=== PATIENT | female | born 2000 | race African-American/Black ===

== ENCOUNTER 2022-09-07 10:07 | Inpatient (IN) | payer OTHER ==
[2022-09-07] MEDS ORDERED: CITRIC ACID/SODIUM CITRATE 30 ML UNIT-DOSE CUP PO ONE (10:45)
[2022-09-07] MEDS ORDERED: ELECTROLYTE-148 SOLN 1,000 ML IV SCH ×2 (10:45→15:45)
[2022-09-07] MEDS ORDERED: ELECTROLYTE-148 SOLN 1,000 ML IV ONE (10:45)
[2022-09-07 11:40] VITALS: BMI 47.4
[2022-09-07] MEDS ORDERED: morphine SULFATE/PF 1 MG/2 ML (2cc Syringe - QUVA) ONE (13:22)
[2022-09-07] MEDS ORDERED: FENTANYL CITRATE/PF 50 MCG/ML VIAL ONE (13:22)
[2022-09-07] MEDS ORDERED: ONDANSETRON 4 MG/2 ML VIAL ONE (14:15)
[2022-09-07] MEDS ORDERED: DEXAMETHASONE SOD PHOSPHATE 4 MG/1 ML VIAL ONE (14:15)
[2022-09-07] MEDS ORDERED: OXYTOCIN 10 UNITS/ML VIAL ONE (14:15)
[2022-09-07] MEDS ORDERED: OXYTOCIN 20 UNITS in 0.9% NS 20 UNIT/1,000 ML INFUS.BAG IV ONE (15:18)
[2022-09-07] MEDS ORDERED: SENNOSIDES/DOCUSATE COMBO (SENNA PLUS) TABLET (UD) PO PRN (15:30)
[2022-09-07] MEDS: OXYTOCIN 20 UNITS in 0.9% NS 20 UNIT/1,000 ML INFUS.BAG IV SCH (15:30)
[2022-09-07] MEDS ORDERED: IBUPROFEN 800 MG/8 ML IJ IVPB PRN (15:30)
[2022-09-07] MEDS ORDERED: METHYLERGONOVINE MALEATE 0.2 MG/1 ML AMP IM PRN (15:30)
[2022-09-07] MEDS ORDERED: ACETAMINOPHEN 325 MG TABLET (FP) PO PRN (15:30)
[2022-09-07] MEDS ORDERED: ELECTROLYTE-148 SOLN 500 ML IV ONE (15:36)
[2022-09-07] MEDS: FERROUS SO4 325 MG TABLET (FP) PO SCH (18:00)
[2022-09-08] MEDS: OXYTOCIN 20 UNITS in 0.9% NS 20 UNIT/1,000 ML INFUS.BAG IV SCH (00:10)
[2022-09-08] MEDS ORDERED: oxyCODONE HCL 5 MG TABLET PO PRN ×2 (03:30)
[2022-09-08 08:13] LABS: BASO % 0.2 % (0-2.0); HEMATOCRIT 27.9 % (32.4-45.2); HEMOGLOBIN 8.6 GM/dL (10.7-15.3); LYMPH % 13.3 % (8-40); MCH 23.3 pg (25.7-33.7); MCHC 30.9 g/dl (32.0-36.0); MEAN CELL VOLUME 75.2 fl (80-96); MEAN PLT VOLUME 8.2 fl (7.5-11.1); MONO % 6.6 % (3.8-10.2); NEUT % 79.9 % (42.8-82.8); PLATELET COUNT 269 10^3/uL (134-434); RBC 3.71 M/mm3 (3.60-5.2); RDW 17.6 % (11.6-15.6); WHITE BLOOD COUNT 14.4 K/mm3 (4.0-10.0)
[2022-09-08] MEDS: FERROUS SO4 325 MG TABLET (FP) PO SCH ×2 (09:09→16:50)
[2022-09-08] MEDS: SIMETHICONE 80 MG TAB.CHEW (FP) PO PRN ×3 (09:09→20:02)
[2022-09-08] MEDS: PRENATAL VITAMINS W/ FOLIC ACID TABLET (FP) PO SCH (09:10)
[2022-09-08] MEDS: IBUPROFEN 600 MG TABLET (FP) PO PRN ×2 (12:36→20:02)
[2022-09-08] MEDS ORDERED: BISACODYL 10 MG SUPP.RECT RC PRN (15:30)
[2022-09-09] MEDS: IBUPROFEN 600 MG TABLET (FP) PO PRN ×4 (02:09→22:11)
[2022-09-09] MEDS: SIMETHICONE 80 MG TAB.CHEW (FP) PO PRN ×2 (02:09→22:11)
[2022-09-09] MEDS: FERROUS SO4 325 MG TABLET (FP) PO SCH ×2 (09:37→17:16)
[2022-09-09] MEDS: PRENATAL VITAMINS W/ FOLIC ACID TABLET (FP) PO SCH (09:37)
[2022-09-10] MEDS: IBUPROFEN 600 MG TABLET (FP) PO PRN (05:22)
[2022-09-10] MEDS: FERROUS SO4 325 MG TABLET (FP) PO SCH (09:20)
[2022-09-10 09:46] VITALS: BP 119/70; PULSE 84; RESP 17; TEMP 98.1
[2022-09-10] MEDS: PRENATAL VITAMINS W/ FOLIC ACID TABLET (FP) PO SCH (11:01)
== END 2022-09-10 14:55 | disposition home or self-care (01) | DRG 787 ==
LOC: JLDR 10:07 → J3W 16:45
PROVIDERS: ADMIT Obstetrics & Gynecology; ATTEND Obstetrics & Gynecology
PROC: 10D00Z1 Extraction of Products of Conception, Low, Open Approach (ICD-10-PCS; principal; 2022-09-07)
DX: O32.2XX0 Maternal care for transverse and oblique lie, not applicable or unspecified (principal); O41.03X0 Oligohydramnios, third trimester, not applicable or unspecified; O48.0 Post-term pregnancy; O36.63X0 Maternal care for excessive fetal growth, third trimester, not applicable or unspecified; O99.62 Diseases of the digestive system complicating childbirth; K80.20 Calculus of gallbladder without cholecystitis without obstruction; Z3A.40 40 weeks gestation of pregnancy; Z37.0 Single live birth
CPT/HCPCS: 36415; 85025; 88307-TC